=== PATIENT | female | born 1990 | race Caucasian/White ===

== ENCOUNTER → 2020-06-11 10:30 | Outpatient (CLI) | payer OTHER, SELFPAY ==
--- NOTE | ~2020-06-11 | US_ITS ---
EXAMINATION: US OB transvaginal DATE: 06/11/2020 10:59 INDICATION: First trimester dating TECHNIQUE: Real-time pelvic transabdominal and transvaginal ultrasound was performed. COMPARISON: None. FINDINGS: The uterus measures 10.8 x 7.1 x 6.6 cm. There is an intrauterine gestational sac. A yolk sac is identified. heart motion is identified measuring 171 beats per minute (bpm) by M-mode Do ppler. The crown rump length measures 1.6 cm , which correlates with an estimated gestational a ge of 8 weeks and 0 day(s) (+/-) 5 day(s). The ovaries are not visualized however no adnexal abnormality is seen. There is no free fluid in the pelvis. IMPRESSION: 1. Live intrauterine with an estimated gestational age of 8 weeks and 0 day(s) (+/-) 5 day( s) and an estimated delivery date of 01/21/2021. Reviewed, dictated and finalized at location A. STRATION CLERK IMPRESSION: 1. Live intrauterine with an estimated gestational age of 8 weeks and 0 day(s) (+/-) 5 day(s) and an estimated delivery date of 01/21/2021.
== END ==
PROVIDERS: Visit Provider Obstetrics & Gynecology
DX: Z34.91 Encounter for supervision of normal pregnancy, unspecified, first trimester (principal); Z3A.08 8 weeks gestation of pregnancy
CPT/HCPCS: 76817

== ENCOUNTER → 2020-07-28 11:23 | Outpatient (CLI) | payer OTHER, SELFPAY ==
--- NOTE | ~2020-07-28 | US_ITS ---
EXAMINATION: US OB follow up DATE: 07/28/2020 11:58 INDICATION: Routine care during early second trimester TECHNIQUE: Real-time ultrasound of the pelvis was performed. The interpreting radiologist was not pre sent for the study. COMPARISON: 06/11/2020 FINDINGS: There is a single living fetus in variable presentation. The placenta is anterior and low lying appe aring to extend across the region of the internal cervical os. heart rate is 163 beats per deb te (bpm). The amniotic fluid is subjectively normal. The following biometric data were obtained: BPD: 3.3 cm -> 16 weeks 1 days Head circumference: 12.1 cm -> 16 weeks 0 days Abdominal circumference: 9.3 cm -> 15 weeks 3 days Femur length: 1.5 cm -> 14 weeks 4 days These measurements are concordant. Head circumference to abdominal circumference ratio: 1.29 (normal range 1.06-1.36). Estimated weight: 115 g (+/-) 17 g. or 4 oz. (+/-) 1 oz. IMPRESSION: 1. Single living fetus in variable presentation with heart rate of 163 bpm. 2. Anterior and low-lying placenta which appears to extend across the region of the internal cervical os. Recommend repeat imaging during early third trimester of . 3. Estimated weight is 67th percentile by Hadlock criteria when 01/21/2021 is used as the estim ated date of delivery (ERNIE) based upon earliest ultrasound performed at this institution on 06/11/2020 . Please correlate with clinical information or earlier ultrasounds for most accurate ERNIE. Reviewed, dictated and finalized at location A. IMPRESSION: 1. Single living fetus in variable presentation with heart rate of 163 bp m. 2. Anterior and low-lying placenta which appears to extend across the region of the internal cervical os. Recommend repeat imaging during early third trimeste r of . 3. Estimated weight is 67th percentile by Hadlock criteria when 1 is used as the estimated date of delivery (ERNIE) based upon earliest ultrasoun d performed at this institution on 06/11/2020. Please correlate with clinical in formation or earlier ultrasounds for most accurate ERNIE.
== END ==
PROVIDERS: Visit Provider Obstetrics & Gynecology
DX: O44.42 Low lying placenta NOS or without hemorrhage, second trimester (principal); Z3A.16 16 weeks gestation of pregnancy
CPT/HCPCS: 76816

== ENCOUNTER → 2020-09-08 11:27 | Outpatient (CLI) | payer OTHER, SELFPAY ==
--- NOTE | ~2020-09-08 | US_ITS ---
EXAMINATION: US OB >= 14 weeks Fetus DATE: 09/08/2020 12:02 INDICATION: anatomic survey. TECHNIQUE: Real-time ultrasound of the pelvis was performed. COMPARISON: Ultrasound 07/28/2020, 06/11/2020 FINDINGS: There is a single living fetus in transverse lie. The placenta is anterior, 1.1 cm from the cervix. heart rate is 154 beats per minute (bpm). The amniotic fluid volume is subjectively normal. The following biometric data were obtained: Biparietal diameter (BPD): 5.2 cm; head circumference (HC): 19.2 cm; abdominal circumference (AC): 18 .2 cm; femur length (FL): 3.4 cm. These measurements are discordant with FL/AC lower than 2 standard deviations of the mean. Estimated weight is 462 g +/- 69 g, which correlates with 96th percentile when 01/21/21 is used as estimated date of delivery. As single measurements, these parameters are each equal to the following estimated gestational ages w ith ranges of +/- 2 standard deviations: BPD: 21 weeks 6 days (20 weeks 1 days - 23 weeks 4 days). HC: 21 weeks 3 days (20 weeks 0 days - 23 weeks 0 days). AC: 23 weeks 0 days (21 weeks 0 days - 25 weeks 0 days). FL: 20 weeks 5 days (18 weeks 6 days - 22 weeks 4 days). estimated gestational age based solely on measurements from this exam is 21 weeks 5 days +/- 1 weeks 4 days. The cerebral ventricles, cerebellum, cisterna magna, nuchal fold, and visualized portions of the spin e are normal. The heart is normal. The diaphragm, stomach, kidneys, and bladder are normal. There are two umbilical arteries to yield a 3-vessel cord. The cord insertion is normal. IMPRESSION: 1. Single living fetus in transverse lie. 2. Large for gestational age. Estimated weight is 462 g +/- 69 g, which correlates with 96th pe rcentile when 01/21/21 is used as estimated date of delivery. This date was set by ultrasound on 06/11. 3. Low lying placenta. 4. Normal anatomic survey. 5. Discordant biometrics with low FL/AC. Reviewed, dictated and finalized at location A. IMPRESSION: 1. Single living fetus in transverse lie. 2. Large for gestational age. Estimated weight is 462 g +/- 69 g, which c orrelates with 96th percentile when 01/21/21 is used as estimated date of paluo martin. This date was set by ultrasound on 06/11/2020. 3. Low lying placenta. 4. Normal anatomic survey. 5. Discordant biometrics with low FL/AC.
== END ==
PROVIDERS: Visit Provider Obstetrics & Gynecology
DX: O44.42 Low lying placenta NOS or without hemorrhage, second trimester (principal); Z3A.21 21 weeks gestation of pregnancy
CPT/HCPCS: 76805

== ENCOUNTER → 2020-11-19 10:24 | Outpatient (CLI) | payer OTHER, SELFPAY ==
--- NOTE | ~2020-11-19 | US_ITS ---
EXAMINATION: US OB follow up DATE: 11/19/2020 10:44 INDICATION: Encounter for supervision of normal TECHNIQUE: Real-time transabdominal obstetric ultrasound. FINDINGS: Comparison to multiple prior studies sequentially, with oldest reviewed study dated 021. There is a single living fetus in breech presentation. The placenta is anterior without placenta pre via. cardiac activity and movement is noted with a heart rate of 165 beats per minute. T he amniotic fluid volume is normal. FRANC measures 18.4 cm. The following biometric data were obtained: BPD: 88mm corresponds to gestational age 35 weeks 5 days. Head circumference: 318mm corresponds to gestational age 35 weeks 5 days. Abdominal circumference: 312mm corresponds to gestational age 35 weeks 2 days. Femur length: 65mm corresponds to gestational age 33 weeks 5 days. Estimated weight: 2542grams +/- 381grams, greater than 97th percentile for gestational age. IMPRESSION: 1. Single living fetus in breech presentation with an estimated gestational age of 31 weeks 0 days b y inititial ultrasound. Accelerated interval growth with estimated weight greater than 97 th percentile, compatible with large for gestational age fetus. 2. Normal placenta. Reviewed, dictated and finalized at location A. IMPRESSION: 1. Single living fetus in breech presentation with an estimated gestational ag e of 31 weeks 0 days by inititial ultrasound. Accelerated interval growth with estimated weight greater than 97th percentile, compatible with larg e for gestational age fetus. 2. Normal placenta.
== END ==
PROVIDERS: Visit Provider Obstetrics & Gynecology
DX: Z34.93 Encounter for supervision of normal pregnancy, unspecified, third trimester (principal); Z3A.31 31 weeks gestation of pregnancy
CPT/HCPCS: 76816

== ENCOUNTER 2020-12-26 09:35 | Outpatient (RCR) | payer OTHER, SELFPAY ==
[2020-12-26 10:53] VITALS: BP 119/62; PULSE 95
== END 2021-02-15 10:32 | disposition home or self-care (01) ==
LOC: ANHOBOP 09:35
PROVIDERS: PCP Nurse Practitioner Family; Visit Provider Obstetrics & Gynecology
DX: O24.419 Gestational diabetes mellitus in pregnancy, unspecified control (principal); Z3A.36 36 weeks gestation of pregnancy
CPT/HCPCS: 59025

== ENCOUNTER 2021-01-15 06:48 | Inpatient (IN) | payer OTHER, SELFPAY ==
--- NOTE | 2020-12-22 14:06 | PC.NURSE ---
PATIENT STATES SHE IS TO HAVE A C/S WITH TUBAL ON 01/21/21--NOT ON SURGERY SCHEDULE AT THIS TIME PATIENT INSTRUCTED WHEN SHE KNOWS DAY AND TIME OF SURGERY,SHE WILL NEED TO HAVE PRE-OP LABS DRAWN THE DAY BEFORE SURGERY,BE IN OB 2 HOURS BEFORE SURGERY TIME AND NOTHING BY MOUTH THE NIGHT BEFORE SURGERY. PATIENT VERBLAIZED HER UNDERSTANDING
--- NOTE | 2021-01-11 08:01 | PM.IMHP ---
H&P: HPI History of Present Illness Date/Time: 01/11/21 08:01 30yo CF @39 weeks EGA history of section desires Repeat with bilateral tubal female sterilization with h/o gestational DM, Class A2 on evening long acting insulin per MFM, MTHFR, previous x 1, asthma, depression, anxiety disorder presents for Repeat LT C section with biltaeral tubal sterilization-bilateral salpingectomy under spinal anesthesia on 01/15/21 Her care began 06/08/2020 and her was evaluated with serial ultrasounds monthly MTHFR treatment with aspirin progesterone B12 folic acid, noninvasive testing negative alpha fetoprotein screening negative ultrasound for anomalies negative.. Her diabetes screen positive her 183 with an abnormal 3 hour glucose tolerance test and with gestational diabetes diagnosed she was managed with insulin per maternal medicine. The rest of her 3rd trimester labs and group B strep screen was negative. She understands her condition procedure and risks involved including but not limited to bleeding infection injury to bladder bowel baby pelvic vessels DVT pneumonia wound infections endometritis UTI risk of hemorrhage in the risk of anesthesia she understands all this accepts and agrees to proceed. She understands the tubal sterilization is permanent irreversible she does not desire future fertility she understands the failure rate of 3 to 07/999 with increased risk of ectopic and sequelae she understands that if she becomes the future she is to seek emergency medical attention. She understands that tubal sterilization does not protect against sexually transmitted diseases neck continued condom use is recommended. Chest understands that tubal sterilization does not regulate her hormones abnormalities and that she will continue to need regulation of her hormone imbalance with other medications including progestins the future she understands all this accepts and agrees to proceed. Informed consent obtained and tubal consents are in the chart. Chief Complaint: term gestational diabetes previous desires repeat section multiparity desires bilateral tubal sterilization plan for repeat and bilateral salpingectomy Review of Systems Review of Systems: All systems reviewed & are unremarkable except as noted in HPI and below Constitutional: Constitutional: Reports no additional constitutional complaints Eyes: Eyes: Reports no additional eye complaints ENT: Reports system reviewed and no additional complaints, except as documented Cardiovascular: Cardiovascular: Reports no additional cardiovascular complaints Respiratory: Respiratory: Reports no additional respiratory complaints Gastrointestinal: Gastrointestinal: Reports no additional gastrointestinal complaints Genitourinary: Genitourinary: Reports no additional female genitourinary complaints Musculoskeletal: Musculoskeletal: Reports no additional musculoskeletal complaints Integumentary/Breasts: Skin/Breast: Reports system reviewed and no additional complaints, except as docu Neurologic: Reports system reviewed and no additional complaints, except as documented Psychiatric: Psychiatric: Reports no additional psychiatric complaints Endocrine: Endocrine: Reports no additional endocrine complaints Hematologic/Lymphatic: Hematologic/Lymphatic: Reports no additional hematologic/lymphatic complaints Allergic/Immunologic: Allergic/Immunologic: Reports no additional allergic/immunologic complaints [facility] Past Medical History Medical History (Updated 01/12/21 @ 15:53 by Leonel Babb MD) Allergic rhinitis Asthma Bacterial vaginosis Compound heterozygous MTHFR mutation [id number] Depressive disorder Generalized anxiety disorder Hyperlipidemia Obesity UTI (urinary tract infection) White classification A2 gestational diabetes mellitus (GDM), insulin controlled Surgical His
--- NOTE | 2021-01-12 14:48 | P.HP_ITS ---
Obstetrics - Admit Note Admission Note: record reviewed. No pertinent additions to the history and/or any subsequent changes in the physical findings that are not consistent with the expected course of the were found. Additions to the history and/or subsequent changes in the physical findings follow. None. 30yo CF @39 weeks EGA history of section desires Repeat with bilateral tubal female sterilization with h/o gestational DM, Class A2 on evening long acting insulin per MFM, MTHFR, previous x 1, asthma, depression, anxiety disorder presents for Repeat LT C section with biltaeral tubal sterilization-bilateral salpingectomy under spinal anesthesia on 01/15/21 Her care began 06/08/2020 and her was evaluated with serial ultrasounds monthly MTHFR treatment with aspirin progesterone B12 folic acid, noninvasive testing negative alpha fetoprotein screening negative ultrasound for anomalies negative.. Her diabetes screen positive her 183 with an abnormal 3 hour glucose tolerance test and with gestational diabetes diagnosed she was managed with insulin per maternal medicine. The rest of her 3rd trimester labs and group B strep screen was negative. She understands her condition procedure and risks involved including but not li mited to bleeding infection injury to bladder bowel baby pelvic vessels DVT pneumonia wound infections endometritis UTI risk of hemorrhage in the risk of anesthesia she understands all this accepts and agrees to proceed. She understands the tubal sterilization is permanent irreversible she does not desire future fertility she understands the failure rate of 3 to 07/999 with increased risk of ectopic and sequelae she understands that if she becomes the future she is to seek emergency medical attention. She understands that tubal sterilization does not protect against sexually transmitted diseases neck continued condom use is recommended. Chest understands that tubal sterilization does not regulate her hormones abnormalities and that she will continue to need regulation of her hormone imbalance with other medications including progestins the future she understands all this accepts and agrees to proceed. Informed consent obtained and tubal consents are in the chart.
[2021-01-15] VITALS (47 sets, daily range): BP systolic 97–125; BP diastolic 62–83; PULSE 79–106; RESP 16–20; TEMP 36.4–36.9; O2SAT 96–100; BMI 39.8
--- OUTSIDE RECORDS SUMMARY | 2021-01-15 06:55 | XMS_ITS ---
:1990 Author Care Team Providers Name Role Phone TRINITY TELLEZ [facility] Primary Care Provider [phone] Allergies Code Code System Name Reaction Severity Status Onset 845618 RxNorm Augmentin ? ? Active ? Medications Name Status Start Date Stop Date ? ? acetaminophen 300 mg-codeine 30 mg Completed ? 12/10/2018 tablet albuterol sulfate 2.5 mg/3 mL (0.083 %) Completed ? 12/10/2018 solution for nebulization atorvastatin 20 mg tablet Completed ? 2019 azithromycin 250 mg tablet Active ? Not a vailable budesonide 0.25 mg/2 mL suspension for nebulization Active ? Not available MIX 1 VIAL WITH SALINE AND IRRIGATE SINUSES BID bupropion HCl SR 150 mg tablet,12 hr Active ? Not available sustained-release bupropion HCl XL 150 mg 24 hr tablet, Completed ? 12/10/2018 extended release buspirone 10 mg tablet Completed ? 0 cetirizine 10 mg tablet Active ? Not steven edwards Chantix Continuing Month Box 1 mg tablet Active ? Not available Take 1 tablet twice a day by oral route as directed for 30 days . Chantix Starting Month Box 0.5 mg (11)-1 mg (42) tablets in dose pack Active ? Not available Take 1 startr pk by oral route as directed. clindamycin HCl 300 mg capsule Completed ? 0 12/10/2018 doxycycline hyclate 100 mg capsule Completed ? 01/13/2020 doxycycline monohydrate 100 mg capsule Active ? Not available TK 1 C PO BID FOR 7 DAYS UTD escitalopram 20 mg tablet Completed ? 2018 famotidine 20 mg tablet Active ? Not steven edwards
--- OUTSIDE RECORDS SUMMARY | 2021-01-15 06:55 | XMS_ITS | Encounter Summary ---
:1990 Author Care Team Providers Name Role Phone Emmanuelle Pinedo [facility] Primary Care Provider [phone] Leonel Babb MD Acute Coordinator [phone] Reason for Visit ob routine visit Assessment and Plan 1. Routine care CF, 38wks 5days, with h/o MTHFR, x1, UTI, BV, candidiasis, obesity, hyperlipidemia, anxiety, depres yunier asthma and tobacco use. On insulin for gestational DM. US 01/06/21 reassuring. ? urinalysis, dipstick 2. Heterozygous methylenetetrahy drofolate reductase mutation Compound heterozygosity for th e C677T and [id number] variants. B12 at next visit ? cyanocobalamin (vit B-12) 1,000 mcg/mL injection solution 3. Gestational diabetes mellitus MFM; Repeat US between 37-38 w eeks. Class A2. On evening long acting insulin per MFM ? gestational diabetes: care instructions 4. History of section Repeat , plan for 01/01 5. Requests tubal ligation. 5. Female sterilization Repeat with tubal st erilization desired 6. Depressive disorder ? learning about mood disord ers 7. Obesity ? when you are overweight: c are instructions 8. Family planning surveillance ? Slynd 4 mg (28) tablet Discussion Note: None recorded. Plan of Care Reminders Provider Appointments Any 15 Leonel bailey, 02/02/2021
--- OUTSIDE RECORDS SUMMARY | 2021-01-15 06:55 | XMS_ITS ---
:1990 Author Care Team Providers Name Role Phone SIDRALUIS ANTONIO Juanita TELLEZ [facility] Primary Care Provider [phone] RYAN CHRISTIAN MD Telephone Worker [phone] Allergies Code Code System Name Reaction Severity Status Onset [id number] RxNorm Augmentin Anaphylaxis ? Active ? Notes: Some allergies listed in Document: #[id number] could not be added to this patient's chart. Please review this document and add these allergies to the patient's chart manually as needed. Medications Name Status Start Date Stop Date ? ? acetaminophen 300 mg-codeine 30 mg Completed ? 12/10/2020 tablet albuterol sulfate 2.5 mg/3 mL (0.083 %) Active ? Not available solution for nebulization Amethia 0.15 mg-30 mcg (84)/10 mcg(7) Completed ? 07/12/2018 tablets,3 month dose pack aspirin 81 mg tablet,delayed release Active ? Not available TAKE 1 TABLET BY MOUTH TWICE DAILY atorvastatin 20 mg tablet Active ? Not av ailable azithromycin 250 mg tablet Active ? Not a vailable baclofen 10 mg tablet Completed ? 07/12/2018 Take 1 tablet 3 times a day by oral route as needed for 30 days . BD Gaby 2nd Gen Pen Needle 32 gauge x Active ? Not available budesonide 0.25 mg/2 mL suspension for nebulization Active ? Not available MIX 1 VIAL WITH SALINE AND IRRIGATE SINUSES BID bupropion HCl SR 150 mg tablet,12 hr sustained-release Active ? Not available TAKE 1 TABLET BY MOUTH TWICE DAILY bupropion HCl XL 150 mg 24 hr tablet, Completed ? 06/02/2020 extended release
--- OUTSIDE RECORDS SUMMARY | 2021-01-15 06:55 | XMS_ITS ---
:1990 Author Care Team Providers Name Role Phone Yahaira Primary Care Provider Unavailable Allergies Code Code System Name Reaction Severity Status Onset [id number] RxNorm Augmentin Hives Moderate to Active ? Severe Medications Name Status Start Date Stop Date ? ? acetaminophen 300 mg-codeine 30 mg tablet Active ? Not available albuterol sulfate 2.5 mg/3 mL (0.083 %) Active ? Not available solution for nebulization atorvastatin 20 mg tablet Active ? Not av ailable azithromycin 250 mg tablet Active ? Not a vailable budesonide 0.25 mg/2 mL suspension for nebulization Active ? Not available MIX 1 VIAL WITH SALINE AND IRRIGATE SINUSES BID bupropion HCl SR 150 mg tablet,12 hr Active ? Not available sustained-release bupropion HCl XL 150 mg 24 hr tablet, Active ? Not available extended release buspirone 10 mg tablet Active ? Not avail able cetirizine 10 mg tablet Active ? Not avai lable clindamycin HCl 300 mg capsule Active ? N ot available doxycycline hyclate 100 mg capsule Active ? Not available doxycycline monohydrate 100 mg capsule Active ? Not available TK 1 C PO BID FOR 7 DAYS UTD escitalopram 20 mg tablet Active ? Not av ailable famotidine 20 mg tablet Active ? Not avai lable TAKE 1 TABLET BY MOUTH TWICE DAILY NEEDED fluconazole 150 mg tablet Active ? Not av ailable fluticasone propionate 50 mcg/actuation Active ? Not available nasal spray,suspension
--- OUTSIDE RECORDS SUMMARY | 2021-01-15 06:56 | XMS_ITS | Encounter Summary ---
:1990 Author Care Team Providers Name Role Phone Emmanuelle Pinedo [facility] Primary Care Provider [phone] Leonel Babb MD Skin Former [phone] Reason for Visit ob routine visit Assessment and Plan 1. Routine care CF, 31wks 6 days, with h/o MTHFR, x1, UTI, BV, candidiasis, obesity, hyperlipidemia, an xiety, depression asthma and tobacco use. On insulin for gestational DM. Repeat US be tween 37-38 weeks. ? urinalysis, dipstick 2. Heterozygous methylenetetrahy drofolate reductase mutation Compound heterozygosity for th e C677T and U8125I variants. B12 at next visit 3. Gestational diabetes mellitus MFM; Repeat US between 37-38 w eeks. Class A2. On evening long acting insulin per MFM ? gestational diabetes: care instructions ? HbA1c (hemoglobin A1c), bl ood ? US, obstetric, 3rd trimest er 4. History of section Repeat , plan for 01/01 5. Requests tubal ligation. ? section (SURG) 5. Female sterilization Repeat with tubal st erilization desired ? tubal ligation at time of (SURG) 6. Bacterial vaginosis ? bacterial vaginosis: care instructions 7. Candidiasis of vagina ? vaginal yeast infection: c are instructions 8. Depressive disorder ? learning about mood disord ers 9. Allergic rhinitis ? Flonas
--- OUTSIDE RECORDS SUMMARY | 2021-01-15 06:56 | XMS_ITS | Encounter Summary ---
:1990 Author Care Team Providers Name Role Phone Emmanuelle Pinedo [facility] Primary Care Provider [phone] Leonel Babb MD Physiotherapy Assistant [phone] Reason for Visit ob routine visit Assessment and Plan 1. Routine care CF, 31wks 6 days, with h/o MTHFR, x1, UTI, BV, candidiasis, obesity, hyperlipidemia, an xiety, depression asthma and tobacco use. On insulin for gestational DM. Repeat US ? urinalysis, dipstick 2. Heterozygous methylenetetrahy drofolate reductase mutation Compound heterozygosity for th e C677T and [id number] variants. B12 at next visit 3. Gestational diabetes mellitus MFM; Repeat US between 37-38 w eeks. Class A2. On evening long acting insulin per MFM ? gestational diabetes: care instructions ? TSH + free T4, serum 4. History of section Repeat , plan for 01/01 5. Requests tubal ligation. 5. Female sterilization Repeat with tubal st erilization desired Discussion Note: None recorded. Plan of Care Reminders Provider Appointments Any 15 Leonel bailey, 02/02/2021 10:45AM Lab Urinalysis, In-Of fice Order Dipstick 01/05/2021 ? TSH + Free [facility] p T4, Serum 01/05/2021 Referral None ?
--- OUTSIDE RECORDS SUMMARY | 2021-01-15 06:56 | XMS_ITS | Encounter Summary ---
:1990 Author Care Team Providers Name Role Phone Emmanuelle Pinedo [facility] Primary Care Provider [phone] Leonel Babb MD Nurse Administrator [phone] Reason for Visit ob routine visit Assessment and Plan 1. Routine care CF, 31wks 6 days, with h/o MTHFR, x1, UTI, BV, candidiasis, obesity, hyperlipidemia, an xiety, depression asthma and tobacco use. On insulin for gestational DM. ? culture, vaginal/rectal, s treptococcus group B - PLEASE FAX RESULTS TO [facility] [phone] ? bacterial vaginosis + vagi nitis panel, vaginal - PLEASE FAX RESULTS TO [facility] [phone] ? HSV (1+2) DNA, qual, PCR, unspecified specimen - PLEASE FAX RESULTS TO [facility] AT [phone] ? urinalysis, dipstick 2. Gestational diabetes mellitus MFM ? gestational diabetes: care instructions 3. History of section Repeat , plan for 01/01 5. Requests tubal ligation ? section (SURG) 4. Female sterilization Repeat with tubal st erilization desired ? tubal ligation at time of (SURG) 5. Heterozygous methylenetetrahy drofolate reductase mutation Compound heterozygosity for th e C677T and [id number] variants. B12 at next visit 6. Depressive disorder ? learning about mood disord ers 7. Anxiety Discussion Note: None recorded. Plan of Care Reminders Provider
--- OUTSIDE RECORDS SUMMARY | 2021-01-15 06:56 | XMS_ITS | Encounter Summary ---
:1990 Author Care Team Providers Name Role Phone Emmanuelle Pinedo [facility] Primary Care Provider [phone] Leonel Babb MD Groundskeeper [phone] Reason for Visit ob routine visit Assessment and Plan Assessment Note LAINA AbrahamS 1. Routine care RENZO at 34wk0d. c/b g estational DM, MTHFR, x1, obesity, anxiety, depression, asthma, and tobacco use. Referral to [facility] for GDM. RTC in 2 weeks. ? urinalysis, dipstick 2. Gestational diabetes mellitus 3 hour GTT c/w GDM. Referred t o MFM, has appt next week. Further eval/management per their recs. 3. Heterozygous methylenetetrahy drofolate reductase mutation Compound heterozygosity for th e C677T and [id number] variants. B12 injection today. Continue folic acid, progesterone , ASA. ? cyanocobalamin (vit B-12) 1,000 mcg/mL injection solution 4. Deliveries by Pt desires repeat wi th BTL. Discussion Note: None recorded.Patient educational handouts: No information available. Plan of Care Reminders Provider Appointments Any 15 Leonel bailey, 02/02/2021 10:45AM Lab Urinalysis, In-Of fice Order Dipstick 12/10/2020 Referral None ? ? recorded. Procedures None ? ? recorded. Surgeries
--- OUTSIDE RECORDS SUMMARY | 2021-01-15 06:56 | XMS_ITS | Encounter Summary ---
:1990 Author Care Team Providers Name Role Phone Emmanuelle Pinedo [facility] Primary Care Provider [phone] Leonel Babb MD Outer Diameter Technician [phone] Reason for Visit ob routine visit Assessment and Plan Assessment Note Maurice DE LEON 1. Routine care ? urinalysis, dipstick ? US, obstetric, 3rd trimest er ? counting your baby's kicks : care instructions ? kick counts ? CBC - In addition to our o ffice, please fax results to [facility] [phone] ? Boostrix Tdap 2.5 Lf unit- 8 mcg-5 Lf/0.5 mL intramuscular suspension 2. Depressive disorder ? learning about mood disord ers 3. Heterozygous methylenetetrahy drofolate reductase mutation Compound heterozygosity for th e C677T and [id number] variants ? cyanocobalamin (vit B-12) 1,000 mcg/mL injection solution ? progesterone micronized 20 0 mg capsule ? folic acid 1 mg tablet 4. History of section 5. Obesity ? when you are overweight: c are instructions 6. Tobacco user ? stopping smoking: care ins tructions 7. Urinary tract infectious dise ase ? urinary tract infection in women: care instructions 8. Hyperlipidemia ? high cholesterol: care ins tructions 9. Allergic rhinitis ? allergies: care instructio ns
--- OUTSIDE RECORDS SUMMARY | 2021-01-15 06:56 | XMS_ITS | Encounter Summary ---
:1990 Author Care Team Providers Name Role Phone Emmanuelle Pinedo [facility] Primary Care Provider [phone] Leonel Babb MD Bleach Supervisor [phone] Reason for Visit ob routine visit Assessment and Plan Assessment Note Maurice MARINAS 1. Routine care CF, 31wks 6 days, wit h h/o MTHFR, x1, UTI, BV, candidiasis, obesity, hyperlipidemia, an xiety, depression asthma and tobacco use. 1hr GTT abnormal. Doing 3hr GTT today. 2. Heterozygous methylenetetrahy drofolate reductase mutation Compound heterozygosity for th e C677T and R2750N variants. B12 at next visit 3. History of section Repeat . Requests tub al ligation ? section (SURG) 4. Female sterilization Repeat with tubal st erilization desired ? tubal ligation at time of (SURG) 5. Anxiety 6. Asthma ? controlling your asthma: c are instructions ? learning about asthma 7. Depressive disorder ? learning about mood disord ers Discussion Note: None recorded. Plan of Care Reminders Provider Appointments Any 15 Leonel bailey, 02/02/2021 10:45AM Lab None ? ? recorded. Referral None ? ? recorded.
--- NOTE | 2021-01-15 07:19 | P.HPUP_ITS ---
History and Physical Update Update Date/Time: 01/15/21 07:47 History and Physical has been reviewed, including an updated exam of the patient. There are NO changes in the patient's condition. Risks, benefits, and alternatives have been discussed and questions answered. Patient agrees to proceed with procedure. 30yo CF @39 weeks EGA history of section desires Repeat with bilateral tubal female sterilization with h/o gestational DM, Class A2 on evening long acting insulin per MFM, MTHFR, previous x 1, asthma, depression, anxiety disorder presents for Repeat LT C section with biltaeral tubal sterilization-bilateral salpingectomy under spinal anesthesia on 01/15/21 Her care began 06/08/2020 and her was evaluated with serial ultrasounds monthly MTHFR treatment with aspirin progesterone B12 folic acid, no ninvasive testing negative alpha fetoprotein screening negative ultrasound for anomalies negative.. Her diabetes screen positive her 183 with an abnormal 3 hour glucose tolerance test and with gestational diabetes diagnosed she was managed with insulin per maternal medicine. The rest of her 3rd trimester labs and group B strep screen was negative. She understands her condition procedure and risks involved including but not limited to bleeding infection injury to bladder bowel baby pelvic vessels DVT pneumonia wound infections endometritis UTI risk of hemorrhage in the risk of anesthesia she understands all this accepts and agrees to proceed. She understands the tubal sterilization is permanent irreversible she does not desire future fertility she understands the failure rate of 3 to 07/999 with increased risk of ectopic and sequelae she understands that if she becomes the future she is to seek emergency medical attention. She understands that tubal sterilization does not protect against sexually transmitted diseases neck continued condom use is recommended. Chest understands that tubal sterilization does not regulate her hormones abnormalities and that she will continue to need regulation of her hormone imbalance with other medications including progestins the future she understands all this accepts and agrees to proceed. Informed consent obtained and tubal consents are in the chart.
--- NOTE | 2021-01-15 07:49 | LDADM ---
This patient, Magy Dave, was admitted to Labor/Delivery/Recovery 119 on 01/15/21 at 06:48. Plans for labor, pain management and were discussed with patient. Patient/family oriented to hospital policies and general routines including ID bracelet, bed and alarms, visiting hours, pain management, procedures, bathroom and other care routines, personal items, smoking policy, room service/diet and guest tray routines, security routines, call light and visiting hours. Patient/Family are encouraged to report perceived risks to care and to ask questions if they do not understand what they are told or what they should do. See OBIX for further documentation.
[2021-01-15 07:53] LABS: Basophils Absolute Auto 0.1 K/mm3 (0.0-0.1); Basophils Percent Auto 0.5 % (0.2-1.2); Eosinophils Absolute Auto 0.3 K/mm3 (0-0.3); Eosinophils Percent Auto 2.4 % (0-4.4); Hematocrit 36.8 % (37.0-47.0); Hemoglobin 12.2 g/dL (12.0-15.0); Immature Granulocyte Percent A 0.7 % (0-0.5); Lymphocytes Absolute Auto 2.71 K/mm3 (0.9-3.2); Lymphocytes Percent Auto 19.6 % (18.3-44.2); Mean Corpuscular HGB Conc 33.2 g/dl (32-36); Mean Corpuscular Hemoglobin 28.6 pg (26-34); Mean Corpuscular Volume 86.4 fl (80-100); Mean Platelet Volume 10.5 fl (7.4-10.4); Monocytes Absolute Auto 0.7 K/mm3 (0.1-0.6); Neutrophils Absolute Auto 9.9 K/mm3 (1.3-6.7); Neutrophils Percent Auto 71.8 % (45.5-73.1); Platelet Count Result 236 k/mm3 (150-375); Red Blood Count 4.26 M/mm3 (4.2-5.4); Red Cell Distribution Width 14.6 % (11.5-14.5); White Blood Count 13.8 K/mm3 (4.5-10.0)
--- NOTE | 2021-01-15 08:03 | WPDANESEPPF ---
Anes - Initial Pre Proc Eval Procedure: Operation Date: 01/15/21 09:00 Proposed Procedures p Repeat Section with Bilateral Salpingectomy - Leonel Babb MD Date/Time: 01/15/21 08:03 Surgeon: Leonel Babb MD Pre Op Diagnosis: C Section Patient Data Age: 30 Gender: F Height: 1.52 m Weight: 92.5 kg Last Vital Signs Temp 36.7 C 01/15/21 07:20 Pulse 99 01/15/21 07:17 Resp 16 01/15/21 07:20 BP 120/78 01/15/21 07:17 Allergies Allergy/AdvReac Type Severity Reaction Status Date / Time amoxicillin [From Augmentin] Allergy Intermediate Hives Verified 01/15/21 08:01 clavulanic acid Allergy Intermediate Hives Verified 01/15/21 08:01 [From Augmentin] Home Medications Medication Instructions Recorded Confirmed Type Lacto.acidophilus-Bif.animalis 1 cap PO PRN 12/22/20 01/15/21 History [Daily Probiotic] aspirin [Aspirin Low Dose] 81 mg PO DAILY 12/22/20 01/15/21 History bupropion HCl [Wellbutrin SR] 150 mg PO BID 12/22/20 01/15/21 History cetirizine [Zyrtec] 10 mg PO DAILY 12/22/20 01/15/21 History famotidine 20 mg PO DAILY 12/22/20 01/15/21 History folic acid 2 mg PO BID 12/22/20 01/15/21 History montelukast [Singulair] 10 mg PO DAILY 12/22/20 01/15/21 History prenat.vits,george,nhq-dzit-yjdei 1 tablet PO DAILY 12/22/20 01/15/21 History [ #2] progesterone micronized 200 mg PO BID 12/22/20 01/15/21 History Laboratory Tests 01/15/21 01/15/21 01/15/21 07:14 07:14 07:14 WBC 13.8 K/mm3 H K/mm3 (4.5-10.0) RBC 4.26 M/mm3 M/mm3 (4.2-5.4) Hgb 12.2 g/dL g/dL (12.0-15.0) Hct 36.8 % L % (37.0-47.0) MCV 86.4 fl fl (80-100) MCH 28.6 pg pg (26-34) MCHC 33.2 g/dl g/dl (32-36) RDW 14.6 % H % (11.5-14.5) Plt Count 236 k/mm3 k/mm3 (150-375) MPV 10.5 fl H fl (7.4-10.4) Immature Gran % (Auto) 0.7 % H % (0-0.5) Neut % (Auto) 71.8 % % (45.5-73.1) Lymph % (Auto) 19.6 % % (18.3-44.2) [place] % (Auto) 5.0 % % (2.6-8.5) Eos % (Auto) 2.4 % % (0-4.4) Baso % (Auto) 0.5 % % (0.2-1.2) Lymph # (Auto) 2.71 K/mm3 K/mm3 (0.9-3.2) [place] # (Auto) 0.7 K/mm3 H K/mm3 (0.1-0.6) Eos # (Auto) 0.3 K/mm3 K/mm3 (0-0.3) Baso # (Auto) 0.1 K/mm3 K/mm3 (0.0-0.1) Abs Immat Gran (auto) 0.10 K/mm3 H K/mm3 (0.00-0.031) Absolute Neuts (auto) 9.9 K/mm3 H K/mm3 (1.3-6.7) Absolute Nucleated RBC 0.0 K/mm3 K/mm3 (0.0-0.012) Nucleated RBC % 0.0 % % (0.0-0.2) Urine Opiates Screen Pending Urine Methadone Screen Pending Ur Barbiturates Screen Pending Ur Phencyclidine Scrn Pending Ur Amphetamine Screen Pending U Benzodiazepines Scrn Pending Urine Cocaine Screen Pending U Cannabinoids Screen Pending RPR Pending HIV 1&2 Ab/P24 Ag 4thGn 01/15/21 07:14 WBC RBC Hgb Hct MCV MCH MCHC RDW Plt Count MPV Immature Gran % (Auto) Neut % (Auto) Lymph % (Auto) [place] % (Auto) Eos % (Auto) Baso % (Auto) Lymph # (Auto) [place] # (Auto) Eos # (Auto) Baso # (Auto) Abs Immat Gran (auto) Absolute Neuts (auto) Absolute Nucleated RBC Nucleated RBC % Urine Opiates Screen Urine Methadone Screen Ur Barbiturates Screen Ur Phencyclidine Scrn Ur Amphetamine Screen U Benzodiazepines Scrn Urine Cocaine Screen U Cannabinoids Screen RPR HIV 1&2 Ab/P24 Ag 4thGn Pending Patient hx anesthesia problems: none Family hx anesthesia problems: none Results Review: All pre-operative results and documents have been reviewed as part of the pre-opera
[2021-01-15] MEDS: FAMOTIDINE 20 MG/2 ML VIAL IV PUSH (08:14)
[2021-01-15] MEDS: LACTATED RINGERS 1,000 ML 125 ML IV CONT (08:14)
[2021-01-15 08:15] LABS: Barbiturate Screen Urine Negative (Negative); Benzodiazepines Screen Urine Negative (Negative)
[2021-01-15 08:25] LABS: Amphetamine Screen Urine Negative (Negative); Cannabinoid Screen Urine Negative (Negative); Methadone Screen Urine Negative (Negative); Opiate Screen Urine Negative (Negative); Phencyclidine Screen Urine Negative (Negative)
[2021-01-15 09:01] LABS: HIV 1/2 Ab P24 Ag Result Negative (Negative)
[2021-01-15] MEDS: ceFAZolin 2 GM/D5W 50 ML 2 GM/50 ML BAG IVPB (09:13)
[2021-01-15 09:52] LABS: Glucose 78 mg/dL (65-110)
--- NOTE | 2021-01-15 10:29 | PM.OBPRVD ---
OB - Delivery Note Procedure Procedure: Procedures Operation Date: 01/15/21 09:00 < repeat low-transverse section with delivery of viable male and placenta Bilateral tubal sterilization with bilateral complete salpingectomy Adhesiolysis> events: Previous and Gestational Diabetes Intrapartal events: None Induction method: none Delivery monitor: external FHT and external uterine Route of delivery: ( repeat low-transverse) Episiotomy description: None Laceration Description: None Specimen: Yes ( placenta, cord blood, cord blood gases, right left fallopian tube) Quantitative Blood Loss (ml): 350 Anesthesia type: Spinal ( Duramorph) Disposition: floor Complications: none Narrative: see detailed operative note Baby Date of : 01/15/21 Time of : 09:40 Weeks of gestation at delivery: 39 Infant gender: Male Weight (pounds): 9 Weight (ounces): 0 presentation: vertex position: Left Occiput Anterior Placenta delivery description: Manual Removal and Normal Configuration cord vessel description: 3 Vessels score one minute: 9 score five minutes: 9 Narrative: normal exam taken to the nursery in stable condition normal transition
--- NOTE | 2021-01-15 10:32 | W.PM.PROC2 ---
Procedure Note - Detailed Date of Procedure 01/15/21 Pre-op Diagnosis (1) Term : Code(s): Z34.90 - Encounter for supervision of normal , unspecified, unspecified trimester Status: Acute (2) Previous section: Code(s): Z98.891 - History of uterine scar from previous surgery Status: Acute (3) Encounter for female sterilization procedure: Code(s): Z30.2 - Encounter for sterilization Status: Acute (4) Compound heterozygous MTHFR mutation C677T/O3504Y: Code(s): Z15.89 - Genetic susceptibility to other disease Status: Acute (5) Generalized anxiety disorder: Code(s): F41.1 - Generalized anxiety disorder Status: Acute (6) Depressive disorder: Code(s): F32.9 - Major depressive disorder, single episode, unspecified Status: Acute (7) Asthma: Code(s): J45.909 - Unspecified asthma, uncomplicated Status: Acute (8) Obesity: Code(s): E66.9 - Obesity, unspecified Status: Acute (9) White classification A2 gestational diabetes mellitus (GDM), insulin controlled: Code(s): O24.414 - Gestational diabetes mellitus in , insulin controlled Status: Acute Post-op Diagnosis same ((1) Term : Code(s): Z34.90 - Encounter for supervision of normal , unspecified, unspecified trimester Status: Acute (2) Previous section: Code(s): Z98.891 - History of uterine scar from previous surgery Status: Acute (3) Encounter for female sterili) Procedure Performed repeat low-transverse section with delivery of viable male and placenta Bilateral tubal sterilization with bilateral complete salpingectomy Adhesiolysis Surgeon Leonel Babb MD Paperhanger Apprentice [facility] opthalmic tech Anesthesia spinal ( Duramorph by Edwin SHARMA) Indications previous desires repeat section Multiparity desires bilateral tubal sterilization Findings viable male born at 9:40 a.m. 01/[birth year]/2021 spontaneous respirations and cry normal exam taken to the nursery in stable condition normal transition scores 9 and 9 at 1 and 5 minutes respectively weight 9 lb 0 oz length 21 in long Placenta intact three-vessel cord Tubes and ovaries normal pedicles normal after tubal sterilization hemostatic The uterus adhesions sigmoid colon to the posterior uterine serosa - lysed without difficulty Omentum in upper abdomen normal VTE prevention SCDs Antibiotic prophylaxis Ancef 3 g Counts correct Complications none Specimens to pathology included right left fallopian tube placenta cord blood gases and cord blood Description of Procedure informed consent obtained patient taken to the operating room placed in the sitting position spinal anesthetic with Duramorph was administered patient placed in the supine position Barros catheter was inserted her abdominal wall was prepped and then she was draped in the usual sterile fashion. Time-out was performed. A Pfannenstiel incision was made to the skin in the abdomen was opened in layers hemostasis obtained by cauterization fascia was entered bilaterally undermined inferiorly and superiorly as well as laterally the rectus muscles were the midline the peritoneum was entered. Transverse incision was made to the uterus rupture membranes revealed clear fluid. vertex was then delivered via the abdominal incision with fundal pressure and the nose and throat were bulb suction the cord was clamped and cut spontaneous respirations and cry infant handed to the nursery nurse in attendance scores 9 and 9 weight 9 lb length 21 in taken to the nursery in stable condition after normal transition. Placenta cord gases cord blood obtained and then the placenta delivered intact three-vessel cord. Blood clots removed membranes removed from the intrauterine cavity the uterus was externalized and the uterus contracted well Pitocin g
[2021-01-15] MEDS: OXYTOCIN 30 UNITS/NS 500 ML 30 UNITS/500 ML BAG 125 UNITS IV CONT (10:46)
[2021-01-15] MEDS: LORATADINE 10 MG TABLET PO ×2 (11:00→15:06)
[2021-01-15 11:51] LABS: Rapid Plasma Reagin Non-Reactive (NonReactive)
--- NOTE | 2021-01-15 12:55 | OBPPTRN ---
Patient transferred to post room # 277 via stretcher. Support person present. Oriented to unit, room, information board, rooming in, admission packet and security measures. Patient verbalizes understanding.
[2021-01-15] MEDS: DEXTROSE 5%/0.45% SOD CHL 1,000 ML 125 ML IV CONT (15:05)
[2021-01-15] MEDS: KETOROLAC 30 MG/ML VIAL (*BKC) IV PUSH ×2 (15:05→21:17)
[2021-01-15] MEDS: HYDROcodone/acetaminophen (*CRX) 10-325 MG TABLET 1 TAB PO (21:18)
[2021-01-15] MEDS: buPROPion HCL SR (12 HR) 150 MG TAB PO (21:19)
[2021-01-15] MEDS: SIMETHICONE 80 MG TAB.CHEW PO (21:19)
[2021-01-15] MEDS: NICOTINE (*PBKC) 21 MG PATCH 1 PATCH TRANSDERM (21:23)
[2021-01-16] MEDS: KETOROLAC 30 MG/ML VIAL (*BKC) IV PUSH (03:04)
[2021-01-16] MEDS: HYDROcodone/acetaminophen (*CRX) 10-325 MG TABLET 1 TAB PO ×5 (03:05→19:43)
[2021-01-16 03:24] VITALS: BP 119/78; PULSE 97; RESP 18; TEMP 36.5
[2021-01-16 05:22] LABS: Basophils Absolute Auto 0.1 K/mm3 (0.0-0.1); Basophils Percent Auto 0.4 % (0.2-1.2); Eosinophils Absolute Auto 0.2 K/mm3 (0-0.3); Eosinophils Percent Auto 0.9 % (0-4.4); Hematocrit 34.4 % (37.0-47.0); Hemoglobin 11.2 g/dL (12.0-15.0); Immature Granulocyte Percent A 0.5 % (0-0.5); Lymphocytes Absolute Auto 2.84 K/mm3 (0.9-3.2); Lymphocytes Percent Auto 14.8 % (18.3-44.2); Mean Corpuscular HGB Conc 32.6 g/dl (32-36); Mean Corpuscular Hemoglobin 29.6 pg (26-34); Mean Corpuscular Volume 90.8 fl (80-100); Mean Platelet Volume 11.4 fl (7.4-10.4); Monocytes Absolute Auto 1.1 K/mm3 (0.1-0.6); Monocytes Percent Auto 5.6 % (2.6-8.5); Neutrophils Percent Auto 77.8 % (45.5-73.1); Platelet Count Result 252 k/mm3 (150-375); Red Blood Count 3.79 M/mm3 (4.2-5.4); Red Cell Distribution Width 14.7 % (11.5-14.5); White Blood Count 19.2 K/mm3 (4.5-10.0)
[2021-01-16] MEDS: SIMETHICONE 80 MG TAB.CHEW PO ×3 (08:34→16:24)
[2021-01-16] MEDS: MULTIVIT/MIN/PREN/FOL AC/IRON TABLET 1 TAB PO (08:35)
[2021-01-16] MEDS: FAMOTIDINE 20 MG TABLET PO (08:35)
[2021-01-16] MEDS: DOCUSATE SODIUM 100 MG CAPSULE PO ×2 (08:35→16:24)
[2021-01-16] MEDS: LORATADINE 10 MG TABLET PO (08:35)
[2021-01-16 08:45] VITALS: BP 122/69; PULSE 104; PULSE 97; RESP 16; RESP 18; TEMP 36.3; O2SAT 100; O2SAT 96
[2021-01-16] MEDS: FOLIC ACID 1 MG TABLET 2 MG PO ×2 (09:00→16:24)
--- NOTE | 2021-01-16 09:14 | PM.OBPNVD ---
OB - PN: Subj Subjective Date/time seen: 01/16/21 09:14 Patient comments: no complaints, pain well controlled, tolerating diet and flatus present baby status: doing well and nursing well [place] feeding status: exclusively breast feeding OB - PN: Obj Data Labs CBC & Chem 7: 01/16/21 03:18 01/15/21 09:04 Labs: Laboratory Results - last 24 hr 01/15/21 01/15/21 01/15/21 07:14 07:14 09:04 WBC RBC Hgb Hct MCV MCH MCHC RDW Plt Count MPV Immature Gran % (Auto) Neut % (Auto) Lymph % (Auto) [place] % (Auto) Eos % (Auto) Baso % (Auto) Lymph # (Auto) [place] # (Auto) Eos # (Auto) Baso # (Auto) Abs Immat Gran (auto) Absolute Neuts (auto) Absolute Nucleated RBC Nucleated RBC % Glucose 78 Urine Cocaine Screen TNP RPR Non-reactive 01/16/21 03:18 WBC 19.2 H RBC 3.79 L Hgb 11.2 L Hct 34.4 L MCV 90.8 D MCH 29.6 MCHC 32.6 RDW 14.7 H Plt Count 252 MPV 11.4 H Immature Gran % (Auto) 0.5 Neut % (Auto) 77.8 H Lymph % (Auto) 14.8 L [place] % (Auto) 5.6 Eos % (Auto) 0.9 Baso % (Auto) 0.4 Lymph # (Auto) 2.84 [place] # (Auto) 1.1 H Eos # (Auto) 0.2 Baso # (Auto) 0.1 Abs Immat Gran (auto) 0.10 H Absolute Neuts (auto) 15.0 H Absolute Nucleated RBC 0.0 Nucleated RBC % 0.0 Glucose Urine Cocaine Screen RPR OB - PN A/P Assessment and Plan (1) Term delivered: Code(s): O80 - Encounter for full-term uncomplicated delivery Status: Acute (2) Previous section: Code(s): Z98.891 - History of uterine scar from previous surgery Status: Acute (3) Encounter for female sterilization procedure: Code(s): Z30.2 - Encounter for sterilization Status: Acute Plan day: 1 Plan: routine care, discharge home and follow up 6 weeks Time Spent With Patient Time: Total time spent is greater than 50% in coordination of care (as documented) at patient's floor/unit and/or counseling patient: Time with patient: less than 15 minutes Review of Systems Review of Systems: All systems reviewed & are unremarkable except as noted in HPI and below Exam Const: General: comfortable, no acute distress, alert and awake Chest: Breast/axilla inspection: normal inspection of the breasts Resp: Effort & Inspection: normal respiratory effort Cardio: Rate: regular rate GI: Inspection: normal to inspection and incision (Dressing dry and intact) Percussion: Yes normal to percussion Auscultation: normal bowel sounds : General: Yes no CVA tenderness Speculum Exam - Vagina: normal appearance of the vagina Bimanual exam- vagina & uterus: non-tender Psych: Appearance: grossly normal Affect: normal affect Attitude: cooperative Thought content: Yes Normal thought content present Judgement: Good judgement present (Psych)
[2021-01-16] MEDS: IBUPROFEN 600 MG TABLET PO ×2 (13:03→19:36)
[2021-01-16] MEDS: buPROPion HCL SR (12 HR) 150 MG TAB PO ×2 (13:11→19:43)
--- NOTE | 2021-01-16 14:53 | WPDANLDNPN2 ---
Anes-Prog Note L&D-Neuraxial Date/Time: 01/16/21 14:53 Neuraxial medications: intrathecal PF morphine Opiod-related complaints: none Patient feedback: Patient satisfied with post-operative pain management.
--- NOTE | 2021-01-16 14:53 | WPDANLDPN2 ---
Anes-Prog Note L&D Date/Time: 01/16/21 14:53 Comfortable throughout: section Neuraxial method: spinal Epidural/Spinal procedure site: clean & non-tender Neuro status: Neuro function grossly intact. Cardiovascular status: normal Respiratory status: normal Airway patency: baseline Mental status: baseline Post-Op hydration status: normal Vital Signs: Last Vital Signs Temp 36.5 C 01/16/21 03:24 Pulse 97 01/16/21 03:24 Resp 18 01/16/21 03:24 BP 119/78 01/16/21 03:24 Pulse Ox 96 01/15/21 13:10 Pain score (VAS): 3 I/O: Intake & Output 01/15/21 01/16/21 01/16/21 23:59 07:59 15:59 Intake Total 1000 2000 Output Total 550 2600 Balance 450 -600 Post-procedural complaints: none Patient feedback: Patient satisfied with anesthetic care.
[2021-01-16 19:45] VITALS: BP 112/62; PULSE 109; RESP 20; TEMP 37; O2SAT 98
[2021-01-17] MEDS: HYDROcodone/acetaminophen (*CRX) 10-325 MG TABLET 1 TAB PO ×3 (00:37→10:16)
[2021-01-17] MEDS: IBUPROFEN 600 MG TABLET PO ×2 (01:04→07:31)
[2021-01-17] MEDS: SIMETHICONE 80 MG TAB.CHEW PO ×3 (01:08→10:16)
--- NOTE | 2021-01-17 06:26 | PM.OBDSVD ---
DS: Admitting Diagnosis Discharge Date January 17, 2021 Admitting Diagnosis (1) Term : Code(s): Z34.90 - Encounter for supervision of normal , unspecified, unspecified trimester Status: Acute (2) Previous section: Code(s): Z98.891 - History of uterine scar from previous surgery Status: Acute (3) Encounter for female sterilization procedure: Code(s): Z30.2 - Encounter for sterilization Status: Acute (4) Compound heterozygous MTHFR mutation C677T/[id number]: Code(s): Z15.89 - Genetic susceptibility to other disease Status: Acute (5) Generalized anxiety disorder: Code(s): F41.1 - Generalized anxiety disorder Status: Acute (6) Depressive disorder: Code(s): F32.9 - Major depressive disorder, single episode, unspecified Status: Acute (7) Asthma: Code(s): J45.909 - Unspecified asthma, uncomplicated Status: Acute (8) Obesity: Code(s): E66.9 - Obesity, unspecified Status: Acute (9) White classification A2 gestational diabetes mellitus (GDM), insulin controlled: Code(s): O24.414 - Gestational diabetes mellitus in , insulin controlled Status: Acute DS: Discharge Diagnosis Discharge Diagnosis (1) Term delivered: Code(s): O80 - Encounter for full-term uncomplicated delivery Status: Acute (2) Previous section: Code(s): Z98.891 - History of uterine scar from previous surgery Status: Acute (3) Encounter for female sterilization procedure: Code(s): Z30.2 - Encounter for sterilization Status: Acute (4) White classification A2 gestational diabetes mellitus (GDM), insulin controlled: Code(s): O24.414 - Gestational diabetes mellitus in , insulin controlled Status: Acute (5) Obesity: Code(s): E66.9 - Obesity, unspecified Status: Acute (6) Asthma: Code(s): J45.909 - Unspecified asthma, uncomplicated Status: Acute (7) Depressive disorder: Code(s): F32.9 - Major depressive disorder, single episode, unspecified Status: Acute (8) Generalized anxiety disorder: Code(s): F41.1 - Generalized anxiety disorder Status: Acute (9) Compound heterozygous MTHFR mutation C677T/F4391U: Code(s): Z15.89 - Genetic susceptibility to other disease Status: Acute OB - DS: Summary Hospital Course Time spent discussing smoking cessation with patient: 3 to 10 minutes OB Procedures : NST and Ultrasound OB Procedures Intrapartum: ( repeat) low cervical, transverse and Tubal ligation ( bilateral tubal sterilization with bilateral complete salpingectomy) OB Procedures: : P.P. tubal ligation Peripartum Data Infant Delivery Method: Section ( repeat low-transverse section with bilateral tubal sterilization bilateral salpingectomy) Laceration Description: None Episiotomy description: None Procedures: Procedures Operation Date: 01/15/21 09:00 < repeat low-transverse section with delivery of viable male and placenta Bilateral tubal sterilization with bilateral salpingectomy Adhesiolysis> complications: none [place] 1: Gender: Male Disposition of : home Status at Discharge Cognitive/behavioral status at discharge: normal Functional status at discharge: independent ambulation Overall status at discharge: patient is back to baseline Time Spent with Patient Time attestation: Total time spent providing and/or coordinating discharge services: Time spent: Less than 30 minutes Exam Const: General: cooperative, healthy appearing, comfortable, no acute distress, well developed, alert, awake and Physically active Nutritional Appearance: obese Orientation/consciousness: patient oriented x3 Limitations: no limitations HENMT: Head: normal to inspection Eyes: General: appearance normal, both eye
[2021-01-17] MEDS: FAMOTIDINE 20 MG TABLET PO (07:32)
[2021-01-17] MEDS: MULTIVIT/MIN/PREN/FOL AC/IRON TABLET 1 TAB PO (07:32)
[2021-01-17] MEDS: buPROPion HCL SR (12 HR) 150 MG TAB PO (07:32)
[2021-01-17] MEDS: LORATADINE 10 MG TABLET PO (07:32)
[2021-01-17] MEDS: MONTELUKAST SODIUM 10 MG TABLET PO (07:32)
[2021-01-17 10:06] VITALS: BP 123/71; PULSE 103; PULSE 109; RESP 20; TEMP 36.9; O2SAT 98
[2021-01-19 11:05] VITALS: BP 124/78; PULSE 89; RESP 20; TEMP 36.7; O2SAT 99
[2021-02-18 11:22] LABS: Reference Lab Test Result None Detected
== END 2021-01-17 10:45 | disposition home or self-care (01) | DRG 784 ==
LOC: ANHLDR 10:52 → ANHOB2 13:18
PROVIDERS: Admitting Provider Obstetrics & Gynecology; PCP Nurse Practitioner Family; Visit Provider Obstetrics & Gynecology
PROC: 10D00Z1 Extraction of Products of Conception, Low, Open Approach (ICD-10-PCS; CPT 59514; principal; 2021-01-15 09:00)
DX: O34.211 Maternal care for low transverse scar from previous cesarean delivery (principal); E72.12 Methylenetetrahydrofolate reductase deficiency; O99.284 Endocrine, nutritional and metabolic diseases complicating childbirth; O99.344 Other mental disorders complicating childbirth; F41.8 Other specified anxiety disorders; O24.424 Gestational diabetes mellitus in childbirth, insulin controlled; Z3A.39 39 weeks gestation of pregnancy; Z37.0 Single live birth; Z30.2 Encounter for sterilization
CPT/HCPCS: 36415; 80307; 82947; 85025; 86592; 86703; 86850; 86900; 86901; 88302; 88307; A9270; G0432; J0131; J0690; J1100; J1885; J2274; J2370; J2405; J2590; J7120

== ENCOUNTER 2022-06-13 10:31 | Outpatient (CLI) | payer BC, SELFPAY ==
--- NOTE | ~2022-06-13 | CT_ITS ---
EXAMINATION: CT sinus wo con DATE: 06/13/2022 10:45 INDICATION: Chronic sinusitis. TECHNIQUE: Computed tomography (CT) of the paranasal sinuses was performed without intravenous contra st. Iterative reconstruction technique was employed. The dose-length product was 281.78 mGy-cm. COMPARISON: None FINDINGS: There is a small right mastoid effusion. There is moderate mucosal thickening in the fronta l recesses. There is moderate mucosal thickening in the bilateral ethmoid sinuses and mild mucosal th ickening in left sphenoid sinus and the bilateral maxillary sinuses. There is leftward deviation of a nterior nasal septum and mild rightward deviation of posterior nasal septum. Right ostiomeatal unit i s patent. Left ostiomeatal unit is occluded at the infundibulum and hiatus semilunaris. There is a le ft-sided John cell. IMPRESSION: 1. Mucosal thickening in the paranasal sinuses with occlusion of left ostiomeatal unit. 2. Leftward deviation of anterior nasal septum and mild rightward deviation of posterior nasal septum . Reviewed, dictated and finalized at location A. IMPRESSION: 1. Mucosal thickening in the paranasal sinuses with occlusion of left ostiomeat al unit. 2. Leftward deviation of anterior nasal septum and mild rightward deviation of posterior nasal septum.
== END 2022-06-13 10:32 ==
PROVIDERS: PCP Nurse Practitioner Family; Visit Provider Otolaryngology
DX: J32.9 Chronic sinusitis, unspecified (principal); J34.2 Deviated nasal septum
CPT/HCPCS: 70486